=== PATIENT | male | born 1960 | race Caucasian/White ===

== ENCOUNTER 2016-12-27 14:07 | Emergency (ER) | payer BC, SELFPAY ==
--- NOTE | 2016-12-27 14:43 | EDM.PDOC ---
ED HPI GENERAL MEDICAL PROBLEM - General Chief Complaint: General Stated Complaint: LIGHT HEADED, [id number] Time Seen by Provider: 12/27/16 14:25 Source of Information: Reports: Patient History Limitations: Reports: No Limitations - History of Present Illness INITIAL COMMENTS - FREE TEXT/NARRATIVE: This 56 yo male patient reports to the ED with increased lightheadedness over the past 3 hours. The patient reports this morning he laid down for a nap at about 1130 and started to feel lightheaded. The patient also feels like his arms and feet are numb. The patient reports similar symptoms in the past and has been evaluated by Dr. Dickerson and diagnosed with secondary Polycythemia Vera. The patient was seen by Dr. Dickerson on 12/10/16 and is scheduled for a follow-up in 4 months. The patient did call Dr. Bird prior to coming to the ED. Onset: Today Onset Date: 12/27/16 Onset Time: 11:30 Duration: Constant, Recurring Location: Reports: Generalized Quality: Reports: Dull Severity: Moderate Improves with: Reports: None Worsens with: Reports: None Associated Symptoms: Reports: No Other Symptoms - Related Data Allergies Allergy/AdvReac Type Severity Reaction Status Date / Time No Known Allergies Allergy Verified 12/27/16 14:12 Home Meds: Home Meds Lisinopril 10 mg PO DAILY 10/12/13 [History] Aspirin 325 mg PO DAILY 04/11/15 [History] Ascorbic Acid [C-1000] 1,000 mg PO DAILY 10/30/15 [History] Multivitamin with Minerals [Multivitamins with Minerals] 1 each PO DAILY [History] Cholecalciferol (Vitamin D3) [Vitamin D] 1 cap PO .EVERY 48 HOURS 10/31/15 [ History] Omeprazole 20 mg PO DAILY 02/27/16 [History] Past Medical History - Past Health History Medical/Surgical History: Denies Medical/Surgical History HEENT History: Reports: None Cardiovascular History: Reports: Hypertension Respiratory History: Reports: COPD Gastrointestinal History: Reports: None Genitourinary History: Reports: None Musculoskeletal History: Reports: None Neurological History: Reports: None Psychiatric History: Reports: None Endocrine/Metabolic History: Reports: Obesity/BMI 30+ Hematologic History: Reports: None Immunologic History: Reports: None Oncologic (Cancer) History: Reports: None Dermatologic History: Reports: None - Infectious Disease History Infectious Disease History: Reports: Other (See Below) Other Infectious Disease History: unaware of having these illnesses - Past Surgical History Head Surgeries/Procedures: Reports: None Other HEENT Surgeries/Procedures: dental extractions GI Surgical History: Reports: Colonoscopy Social & Family History - Tobacco Use Smoking Status *Q: Current Some Day Smoker Years of Tobacco use: 30 Packs/Tins Daily: 0.2 Used Tobacco, but Quit: No Month Tobacco Last Used: 03/2015 Second Hand Smoke Exposure: No - Caffeine Use Caffeine Use: Reports: None - Alcohol Use Days Per Week of Alcohol Use: 0 - Recreational Drug Use Recreational Drug Use: No - Living Situation & Occupation Living situation: Reports: Occupation: Employed ED ROS GENERAL - Review of Systems Review Of Systems: ROS reveals no pertinent complaints other than HPI. ED EXAM, GENERAL - Physical Exam Exam: See Below Exam Limited By: No Limitations General Appearance: Alert, WD/WN, Moderate Distress, Obese Eye Exam: Bilateral Eye: EOMI, Normal Inspection, PERRL Ears: Normal External Exam, Normal Canal, Hearing Grossly Normal, Normal TMs Nose: Normal Inspection, Normal Mucosa, No Blood Throat/Mouth: Normal Inspection, Normal Lips, Normal Teeth, Normal Gums, Normal Oropharynx, Normal Voice, No Airway Compromise Head: Atraumatic, Normocephalic Neck: Normal Inspection, Supple, Non-Tender, Full Range of Motion Respiratory/Chest: No Respiratory Distress, Lungs Clear, Normal Breath Sounds, No Accessory Muscle Use, Chest Non-Tender Cardiovascular: Normal Peripheral Pulses, Regular Rate, Rhythm, No Edema, No Gallop, No JVD, No Murmur, No Rub GI/Abdominal: Normal Bowel Sounds, Soft, Non-Tender, No Organomegaly, No Distention, No Abnormal Bruit, No Mass (Male) Exam: Deferred Rectal (Males) Exam: Deferred Back Exam: Normal Inspection, Full Range of Motion, NT Extremities: Normal Inspection Neurological: Alert, Oriented, CN II-XII Intact, Normal Cognition, Normal Gait, Normal Reflexes, No Motor/Sensory Deficits Psychiatric: Normal Affect, Normal Mood Skin Exam: Warm, Dry, Intact, Normal Color, No Rash Lymphatic: No Adenopathy Course - Vital Signs Last Recorded V/S: Last Vital Signs Temp 36.4 C 12/27/16 14:19 Pulse 91 08/25/17 14:19 Resp 18 12/27/16 14:19 BP 153/77 H 12/27/16 14:19 Pulse Ox 93 L 12/27/16 14:19 Orthostatic Blood Pressure [ 139/89 Standing] Orthostatic Blood Pressure [ 151/82 Sitting] Orthostatic Blood Pressure [ 139/72 Supine] - Orders/Labs/Meds Orders: Active Orders 24 hr Category Date Time Status EKG Documentation Completion [RC] URGENT Care 12/27/16 14:11 Active DRUG SCREEN URINE BIORAD [URCHEM] Stat Lab 12/27/16 14:11 Uncollected UA W/MICROSCOPIC [URIN] Stat Lab 12/27/16 14:11 Uncollected Labs: Laboratory Tests 12/27/16 12/27/16 Range/Units 14:20 14:20 WBC 13.7 H (5.0-10.0) 10^3/uL RBC 6.00 (4.6-6.2) 10^6/uL Hgb 17.5 (14.0-18.0) g/dL Hct 52.1 (40.0-54.0) % MCV 86.8 (80-100) fL MCH 29.2 (27.0-34.0) pg MCHC 33.6 (33.0-35.0) g/dL Plt Count 257 (150-450) 10^3/uL Neut % (Auto) 66.4 (42.2-75.2) % Lymph % (Auto) 24.3 (20.5-50.1) % Rooks % (Auto) 5.2 (2-8) % Eos % (Auto) 3.4 H (1.0-3.0) % Baso % (Auto) 0.7 (0.0-1.0) % Sodium 139 (135-145) mmol/L Potassium 4.1 (3.6-5.0) mmol/L Chloride 103 (101-111) mmol/L Carbon Dioxide 26.0 (21.0-31.0) mmol/L Anion Gap 14.1 BUN 15 (7-18) mg/dL Creatinine 0.9 (0.6-1.3) mg/dL Est Cr Clr Drug Dosing 92.38 mL/min Estimated GFR (MDRD) > 60 BUN/Creatinine Ratio 16.66 Glucose 133 H (74-105) mg/dL Calcium 9.4 (8.4-10.2) mg/dl Total Bilirubin 0.6 (0.2-1.0) mg/dL AST 26 (10-42) IU/L ALT 24 (10-60) IU/L Alkaline Phosphatase 70 (42-121) IU/L Troponin I < 0.02 (0.00-0.02) ng/ml Total Protein 7.3 (6.7-8.2) g/dl Albumin 4.4 (3.2-5.5) g/dl Globulin 2.9 Albumin/Globulin Ratio 1.52 Meds: Medications Discontinued Medications Generic Name Dose Route Start Last Admin Trade Name Freq PRN Reason Stop Dose Admin Sodium Chloride 1,000 mls @ 999 mls/hr 12/27/16 15:07 12/27/16 15:11 Normal Saline IV 12/27/16 16:07 999 mls/hr .BOLUS ONE Administration Departure - Departure Time of Disposition: 16:21 Disposition: Home, Self-Care 01 Condition: Fair Clinical Impression: Dehydration, Dizziness - Discharge Information Instructions: Dehydration, Adult, [id number] Forms: ED Department Discharge Care Plan Goals: The patient was advised of the examination, lab, EKG and CT results during the visit. The patient was given a liter of IV fluids while in the ED. The patient was encouraged to increase his oral fluid intake over the next 24 hours. If the patient has any additional symptoms or concerns, the patient should follow-up with his primary care facility or return to the emergency department. - My Orders Last 24 Hours: My Active Orders 12/27/16 14:11 EKG Documentation Completion [RC] URGENT DRUG SCREEN URINE BIORAD [URCHEM] Stat UA W/MICROSCOPIC [URIN] Stat - Assessment/Plan Last 24 Hours: My Active Orders 12/27/16 14:11 EKG Documentation Completion [RC] URGENT DRUG SCREEN URINE BIORAD [URCHEM] Stat UA W/MICROSCOPIC [URIN] Stat
[2016-12-27 14:47] LABS: CHLORIDE,CL 103 mmol/L (101-111); SODIUM,NA 139 mmol/L (135-145)
[2016-12-27] MEDS ORDERED: Sodium Chloride 0.9% 1,000 ML IV ONE (15:07)
[2016-12-27 16:33] VITALS: BP 129/72
--- NOTE | 2017-01-01 15:28 | EKG ---
12/27/2016- HAKAN BARRIENTOS - EKG per my reading shows sinus rhythm at a rate of 94. [facility] /[id number]
== END 2016-12-27 16:26 | disposition home or self-care (01) ==
LOC: DL.ED 14:07
DX: E86.0 Dehydration (principal); R42 Dizziness and giddiness; K44.9 Diaphragmatic hernia without obstruction or gangrene; I10 Essential (primary) hypertension; E66.9 Obesity, unspecified; F17.210 Nicotine dependence, cigarettes, uncomplicated; Z79.899 Other long term (current) drug therapy; Z79.82 Long term (current) use of aspirin
CPT/HCPCS: 36415; 70450; 80053; 84484; 85025; 93005; 96360; 99284; J7030